=== PATIENT | male | born 1995 | race Caucasian/White ===

== ENCOUNTER 2017-04-15 15:25 | Emergency (ER) | payer OTHER ==
[~2017-04-15] VITALS: Ht 182.9 cm; Wt 88.5 kg
[~2017-04-15 15:25] MED LIST: ACHD5005 PO; CEPH500C PO
--- NOTE | 2017-04-15 17:42 | ED Back Pain ---
General Stated Complaint: LIFTING AND HURT BACK Source of Information: Patient Exam Limitations: No Limitations History of Present Illness Time Seen by Provider: 17:40 Initial Comments To ER with midline low back pain that began just prior to arrival to ER. He was lifting weights bench pressing 275 pounds. He states "I knew it was poor form and part way up I felt it just tighten up ". Pain does not radiate down either leg. No loss of bowel or bladder control. No loss of sensation of his genitals. No history of back problems. Location: Lumbar Spine Timing/Duration: 1-3 Hours Severity: Moderate Pain/Injury Location: Back Associated Symptoms: denies symptoms Allergies and Home Medications Allergies Coded Allergies: No Known Drug Allergies (Verified Allergy, Unknown, 12/16/09) Home Medications Cephalexin Monohydrate 500 Mg Capsule, 1 EACH PO QID, #40 FOR INFECTION Prescribed by: SOHA BENITO on 06/26/132053 Cyclobenzaprine HCl 5 Mg Tablet, 5 MG PO TID PRN for PAIN-MODERATE, #21 Prescribed by: FRANCISCO NEWBY on 04/15/17 1800 Hydrocodone Bit/Acetaminophen 1 Tab Tablet, 1-2 TAB PO Q6H, #20 FOR PAIN Prescribed by: SOHA BENITO on 06/26/132053 Naproxen 500 Mg Tablet, 500 MG PO BID PRN for PAIN-MODERATE TO SEVERE, #30 Prescribed by: FRANCISCO NEWBY on 04/15/17 1800 Constitutional: see HPI EENTM: see HPI Respiratory: no symptoms reported Cardiovascular: no symptoms reported Genitourinary: no symptoms reported Musculoskeletal: see HPI, back pain Skin: no symptoms reported Psychiatric/Neurological: No Symptoms Reported Past Yfftzrq-Ubkowd-Lqoqxh Hx Patient Social History Recent Foreign Travel: No Contact w/Someone Who Travel: No Immunizations Up To Date Tetanus Booster (TDap): Less than 5yrs Surgeries HX Surgeries: No Respiratory Hx Respiratory Disorders: No Cardiovascular Hx Cardiac Disorders: Yes (PVC'S WHEN HE WAS 6-7 YEARS OLD) Neurological Hx Neurological Disorders: Yes (CONCUSSION) Genitourinary Hx Genitourinary Disorders: No Gastrointestinal Hx Gastrointestinal Disorders: No Musculoskeletal Hx Musculoskeletal Disorders: No Endocrine Hx Endocrine Disorders: No HEENT HX ENT Disorders: No Cancer Hx Cancer: No Psychosocial Hx Psychiatric Problems: No Integumentary HX Skin/Integumentary Disorder: No Blood Transfusions Hx Blood Disorders: No Physical Exam Vital Signs Vital Sign - Last 12Hours 04/15/17 17:40 Temp 97.6 Pulse 59 Resp 18 B/P (MAP) 128/71 Pulse Ox 100 O2 Delivery Room Air Capillary Refill : General Appearance: No Apparent Distress, WD/WN HEENT: PERRL/EOMI, TMs Normal Neck: Full Range of Motion, Normal Inspection Cardiovascular: Regular Rate, Rhythm, Normal Peripheral Pulses Respiratory: No Accessory Muscle Use, No Respiratory Distress Gastrointestinal: Non Tender, Soft Extremity: Normal Capillary Refill, Normal Inspection Neurologic/Psychiatric: Alert, Oriented x3, No Motor/Sensory Deficits Skin: Normal Color, Warm/Dry Progress/Results/Core Measures Results/Orders My Orders Orders - FRANCISCO NEWBY APRN Morphine Injection (Morphine Injection (04/15/17 17:45) Ketorolac Injection (Toradol Injection) (04/15/17 17:45) Medications Given in ED Current Medications Medications Dose Ordered Sig/Regino Route Start Time Stop Time Status Last Admin Dose Admin Ketorolac Tromethamine 60 mg ONCE ONCE IM 04/15/17 17:45 04/15/17 17:46 DC 04/15/17 17:46 60 MG Morphine Sulfate 8 mg ONCE ONCE IM 04/15/17 17:45 04/15/17 17:46 DC 04/15/17 17:47 8 MG Vital Signs/I&O Vital Sign - Last 12Hours 04/15/17 17:40 Temp 97.6 Pulse 59 Resp 18 B/P (MAP) 128/71 Pulse Ox 100 O2 Delivery Room Air Departure Impression Impression: Primary Impression: Back strain Disposition: 01 HOME, SELF-CARE Condition: Stable Departure-Patient Inst. Decision time for Depature: 17:59 Referrals: JT ODONNELL DO (PCP/Family) Primary Care Physician Patient Instructions: Low Back Pain (DC) Add. Discharge Instructions: 1. Return to ER for any concerns 2. Follow-up with your doctor later this week 3. Scripts Cyclobenzaprine HCl (Cyclobenzaprine HCl) 5 Mg Tablet 5 MG PO TID Y for PAIN-MODERATE, #21 TAB Prov: FRANCISCO NEWBY APRN 04/15/17 Naproxen (Naprosyn) 500 Mg Tablet 500 MG PO BID Y for PAIN-MODERATE TO SEVERE, #30 TAB Prov: FRANCISCO NEWBY APRN 04/15/17 FRANCISCO NEWBY UNIX ENGINEER April 15, 2017 17:42
[2017-04-15] MEDS ORDERED: morphine INJ 10 MG/ML 1ML (SYR OR VIAL) IM ONE (17:45)
[2017-04-15] MEDS ORDERED: KETOROLAC 60 MG/2 ML VIAL IM ONE (17:45)
[2017-04-15] MEDS ORDERED: NAPR500T PO (18:00)
[2017-04-15] MEDS ORDERED: CYCL5TAB PO (18:00)
[2017-04-15 18:34] VITALS: BP 124/69
== END 2017-04-15 18:34 | disposition home or self-care (01) ==
LOC: EDUNIT# 15:25 → ER 15:28
DX: S39.012A Strain of muscle, fascia and tendon of lower back, initial encounter (principal); X50.9XXA Other and unspecified overexertion or strenuous movements or postures, initial encounter; Y93.B3 Activity, free weights; Y99.8 Other external cause status
CPT/HCPCS: 96372; 99281

== ENCOUNTER → 2017-06-12 | Outpatient (CLI) | payer OTHER ==
[~2017-06-12] MED LIST changes: +CYCL5TAB PO; +NAPR500T PO
== END ==
LOC: LABNPT 15:00
PROVIDERS: ATTEND Nurse Practitioner Family
DX: J02.9 Acute pharyngitis, unspecified (principal)
CPT/HCPCS: 86308

== ENCOUNTER 2018-08-09 17:09 | Emergency (ER) | payer OTHER ==
[~2018-08-09] VITALS: Ht 182.9 cm; Wt 87.1 kg
[~2018-08-09 17:09] MED LIST changes: +NAPR-1071 PO; -NAPR500T PO
--- OUTSIDE RECORDS SUMMARY | 2018-08-09 17:14 | XMS REPORT | Continuity of Care Document ---
Author Author [facility] Organization [facility] Address Unknown Phone Unavailable Allergies Active Description Code Type Severity Reaction Onset Reported/Identified Relationship to Patient Clinical Status Yes No Known Drug Allergies [id number] Drug Allergy Unknown N/A 12/16/2009 Medications There is no data. Problems Date Dx Coded Attending Type Code Diagnosis Diagnosed By 12/16/2009 Ot 850.0 12/16/2009 Ot E000.8 12/16/2009 Ot E029.9 12/16/2009 Ot E849.4 12/16/2009 Ot E886.0 12/16/2009 Ot E888.1 06/12/2011 Ot 692.6 DERMATITIS DUE TO PLANT 06/12/2011 Ot 782.1 NONSPECIF SKIN ERUPT NEC 08/16/2011 Ot 850.0 CONCUSSION W/ O COMA 08/16/2011 Ot 959.01 HEAD INJURY , NOS 08/16/2011 Ot E000.8 OTHER EXTERNAL CAUSE STATUS 08/16/2011 Ot E007.0 ACTIVITIES INVOLVING DJIBOUTIAN TACKLE NILE 08/16/2011 Ot E849.4 ACCID IN RECREATION AREA 08/16/2011 Ot E928.9 ACCIDENT NOS 06/26/2013 SOHA BENITO DO Ot 834.12 DISL INTERPHALN HAND-OPN 06/26/2013 SOHA BENITO DO Ot 959.5 FINGER INJURY NOS 06/26/2013 SOHA BENITO DO Ot E000.8 OTHER EXTERNAL CAUSE STATUS 06/26/2013 SOHA BENITO DO Ot E007.0 ACTIVITIES INVOLVING DJIBOUTIAN TACKLE NILE 06/26/2013 SOHA BENITO DO Ot E849.4 ACCID IN RECREATION AREA 06/26/2013 SOHA BENITO DO Ot E917.0 STRUCK IN SPORTS 03/25/2014 MELODY MENA MD Ot 850.0 CONCUSSION W/O COMA 03/25/2014 MELODY MENA MD Ot 873.63 TOOTH (BROKEN) (FRACTURED) (DUE TO TRAUM 03/25/2014 TRINA ATKINSON, MELODY Betancourt Ot 959.01 HEAD INJURY, NOS 03/25/2014 MELODY MENA MD Ot E000.8 OTHER EXTERNAL CAUSE STATUS 03/25/2014 MELODY MENA MD Ot E007.6 ACTIVITIES INVOLVING BASKETBALL 03/25/2014 MELODY MENA MD Ot E916 STRUCK BY FALLING OBJECT 04/07/2015 FRANCISCO NEWBY APRN Ot 719.41 JOINT PAIN-SHLDER 04/07/2015 FRANCISCO NEWBY APRN Ot 840.8 SPRAIN SHOULDER/ARM NEC 04/07/2015 FRANCISCO NEWBY APRN Ot E000.8 OTHER EXTERNAL CAUSE STATUS 04/07/2015 FRANCISCO NEWBY APRN Ot E010.0 ACTIVITY INVG EXERCISE MACHINES FOR MUSC 04/07/2015 FRANCISCO NEWBY APRN Ot E927.0 OVEREXERTION FROM SUDDEN STRENUOUS MOVEM 06/10/2015 FRANCISCO NEWBY APRN Ot 850.9 06/10/2015 FRANCISCO NEWBY APRN Ot 959.01 06/10/2015 FRANCISCO NEWBY APRN Ot E000.0 06/10/2015 FRANCISCO NEWBY APRN Ot E849.3 06/10/2015 FRACNISCO NEWBY APRN Ot E917.4 04/15/2017 FRANCISCO NEWBY APRN Ot S39.012A STRAIN OF MUSCLE, FASCIA AND TENDON OF L 04/15/2017 FRANCISCO NEWBY APRN Ot S39.92XA UNSPECIFIED INJURY OF LOWER BACK, INITIA 04/15/2017 FRANCISCO NEWBY APRN Ot X50.9XXA OTHER AND UNSPECIFIED OVREXRTN OR STRNOU 04/15/2017 FRANCISCO NEWBY APRN Ot Y93.B3 ACTIVITY, FREE WEIGHTS 04/15/2017 FRANCISCO NEWBY APRN Ot Y99.8 OTHER EXTERNAL CAUSE STATUS 04/18/2017 FRANCISCO NEWBY APRN Ot S39.012A STRAIN OF MUSCLE, FASCIA AND TENDON OF L 04/18/2017 FRANCISCO NEWBY APRN Ot S39.92XA UNSPECIFIED INJURY OF LOWER BACK, INITIA 04/18/2017 FRANCISCO NEWBY APRN Ot X50.9XXA OTHER AND UNSPECIFIED OVREXRTN OR STRNOU 04/18/2017 FRANCISCO NEWBY APRN Ot Y93.B3 ACTIVITY, FREE WEIGHTS 04/18/2017 FRANCISCO NEWBY APRN Ot Y99.8 OTHER EXTERNAL CAUSE STATUS 06/15/2017 JANKI SUAREZ Ot J02.9 ACUTE PHARYNGITIS, UNSPECIFIED 06/18/2017 JANKI SUAREZ Ot J02.9 ACUTE PHARYNGITIS, UNSPECIFIED 11/24/2017 JANKI SUAREZ Ot J02.9 ACUTE PHARYNGITIS, UNSPECIFIED 08/09/2018 JANKI SUAREZ Ot J02.9 ACUTE PHARYNGITIS, UNSPECIFIED Procedures There is no data. Results Test Result Range Serum heterophile antibody titer - 06/12/17 15:00 Serum heterophile antibody titer NEGATIVE NEGATIVE Encounters ACCT No. Visit Date/Time Discharge Status Pt. Type Provider Facility Loc./Unit Complaint [id number] 06/12/2017 15:00:00 06/12/2017 23:59:59 CLS Outpatient JANKI SUAREZ [facility] LAB MONO [id number] 04/15/2017 15:28:00 04/15/2017 18:34:00 DIS Emergency FRANCISCO NEWBY APRN [facility] ER LIFTING AND HURT BACK [id number] 06/10/2015 21:03:00 06/10/2015 23:30:00 DIS Emergency FRANCISCO NEWBY APRN [facility] ER [id number] 04/07/2015 19:18:00 04/07/2015 20:33:00 DIS Emergency FRANCISCO NEWBY APRN [facility] ER HURT ARM WHILE LIFTING WEIGHTS [id number] 03/25/2014 19:44:00 03/25/2014 21:07:00 DIS Emergency MELODY MENA MD [facility] ER HEAD INJ [id number] 06/26/2013 19:02:00 06/26/2013 21:04:00 DIS Emergency SOHA BENITO DO [facility] ER [id number] 08/09/2018 17:10:00 ACT Emergency SANDRA DEL VALLE MD [facility] ER POSS CONCUSSION [id number] 04/07/2015 19:20:00 Document Registration [id number] 08/16/2011 11:14:00 Document Registration [id number] 12/15/2009 22:50:00 Document Registration [email or web address] 06/10/2015 21:04:09 ACT Document Registration
--- NOTE | 2018-08-09 18:11 | ED Head Injury ---
General Chief Complaint: Head/Cervical Problems Stated Complaint: POSS CONCUSSION Nursing Triage Note: AMBULATED TO TRIAGE WITHOUT DIFFICULTY. STATES HE WAS PLAYING FOOTBALL AND WAS HIT IN THE SIDE OF THE FACE AND HEAD AT ABOUT 1700. DOES NOT BELIEVE HE WAS KNOCKED OUT BUT SAW STARS. COMPLAINS OF HEADACHE ET NAUSEA ALONG WITH RIGHT SIDED JAW PAIN. PT COMPLAINS OF NECK PAIN BUT REFUSES A C-COLLAR AT THIS TIME. 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 Allergies and Home Medications Allergies Coded Allergies: No Known Drug Allergies (Verified , 12/16/09) Home Medications Hydrocodone Bit/Acetaminophen 1 Tab Tab, 1 EACH PO Q4H PRN for PAIN-MODERATE Prescribed by: SOHA BENITO on 08/09/181914 Patient Home Medication List Home Medication List Reviewed: Yes Review of Systems Review of Systems Constitutional: dizziness Eyes: See HPI; Denies Blurred Vision Ears, Nose, Mouth, Throat: see HPI Respiratory: no symptoms reported Cardiovascular: no symptoms reported Gastrointestinal: see HPI, nausea; No vomiting Genitourinary: no symptoms reported Musculoskeletal: see HPI, neck pain Skin: no symptoms reported Psychiatric/Neurological: See HPI, Headache Endocrine: No Symptoms Reported Hematologic/Lymphatic: No Symptoms Reported Past Fmbwicr-Sycbue-Dprhzp Hx Patient Social History Alcohol Use: Occasionally Uses Recreational Drug Use: No Smoking Status: Never a Smoker Recent Foreign Travel: No Contact w/Someone Who Travel: No Recent Infectious Disease Expo: No Recent Hopitalizations: Yes Immunizations Up To Date Tetanus Booster (TDap): Less than 5yrs Past Medical History Surgeries: Yes (FOOT; SURGERY ON FACE TO REPAIR DOG BITE) Respiratory: No Cardiac: Yes (PVC'S WHEN HE WAS 6-7 YEARS OLD) Neurological: Yes (CONCUSSION) Concussion Genitourinary: No Gastrointestinal: No Musculoskeletal: No Endocrine: No HEENT: No Cancer: No Psychosocial: No Integumentary: No Blood Disorders: No Physical Exam Vital Signs Vital Signs - First Documented 08/09/18 17:20 Temp 98.0 Pulse 79 Resp 16 B/P (MAP) 149/76 (100) Pulse Ox 98 O2 Delivery Room Air Capillary Refill : Less Than 3 Seconds Height, Weight, BMI Height: 6'11" Weight: 192lbs. oz. 87.501588mh; BMI Method:Stated General Appearance: WD/WN HEENT: PERRL/EOMI, TMs normal, pharynx normal, other (TENDERNESS TO RIGHT MANDIBLE. NO CREPITANCE, UNABLE TO FULLY OPEN MOUTH DUE TO PAIN . MILD SWELLING TO RIGHT MANDIBLE) Neck: limited range of motion, tender lateral, tender midline Cardiovascular: normal peripheral pulses, regular rate, rhythm, no edema, no JVD, no murmur Respiratory: normal breath sounds, no respiratory distress, no accessory muscle use Gastrointestinal: normal bowel sounds, non tender, soft, no organomegaly Back: normal inspection Extremities: normal range of motion, non-tender, normal inspection, no pedal edema, no calf tenderness, normal capillary refill Psychiatric: alert, oriented x 3 (BUT SLIGHTLY SLOWED MENTATION, AND PROBLEMS WITH SHORT TERM MEMORY IN ER--DIFFICULTY RECALLING THINGS THAT HAVE JUST BEEN SAID) Crainal Nerves: normal hearing, normal speech, PERRL Coordination/Gait: normal finger to nose, normal gait Motor/Sensory: no motor deficit, no sensory deficit, no pronator drift Skin: normal color, warm/dry, other (NO EXTERNAL EVIDENCE OF TRAUMA) Progress/Results/Core Measures Results/Orders My Orders Orders - SOHA BENITO DO Ct Head/Face/Cervical Wo (08/09/18 18:05) Hydrocodone/Apap 5/325 Tablet (Lortab 5 (08/09/18 19:15) Vital Signs/I&O Blood Pressure Mean: [address] HEAD/MAXILLOFACIALS/CERVICAL SPINE--FX OF RAMUS OF RIGHT MANDIBLE, EXTENDING TO CORONOID PROCESS, NO ACUTE INJURY OFINTRACRANIAL OR CERVICAL SPINE--PER RADIOLOGIST REPORT @ 1902 Reviewed: Reviewed by Me Departure Impression Primary Impression: Fracture of right side of mandible Additional Impressions: Concussion without loss of consciousness CERVICAL SPINE STRAIN Disposition: 01 HOME, SELF-CARE Condition: Stable (ERASED) Departure-Patient Inst. Referrals: SAMI ARIAS DDS, ADAM S DO (PCP/Family) Primary Care Physician Patient Instructions: Concussion, Adult (DC), Jaw Fracture (DC), Neck Sprain ( DC) Add. Discharge Instructions: ICE TO SORE AREA AT 20 MINUTE INTERVALS NO CHEWING OR OPENING OF MOUTH--LIQUIDS ONLY FOLLOW UP WITH DR. ARIAS THIS WEEK FOR JAW FRACTURE--CALL IN AM FOR APPOINTMENT FOLLOW UP WITH DR. ODONNELL THIS WEEK FOR CONCUSSION--CALL IN AM FOR APPOINTMENT. All discharge instructions reviewed with patient and/or family. Voiced understanding. Scripts Hydrocodone Bit/Acetaminophen (Hydrocodone/Acetaminophen 5/325mg Tablet) 1 Tab Tab 1 EACH PO Q4H PRN for PAIN-MODERATE MDD 10, #20 TAB Prov: SOHA BENITO DO 08/09/18 SOHA BENITO DO Aug 09, 2018 18:11
--- NOTE | 2018-08-09 18:47 | Diagnostic Imaging Report ---
PROCEDURE: CT head, face, and cervical spine without contrast. TECHNIQUE: Multiple contiguous axial images were obtained through the head, neck, and facial bones without the use of intravenous contrast. Sagittal and coronal reformations through the cervical spine and facial bones were also performed. DATE: August 09, 2018. COMPARISON: CT head June 10, 2015. CT head and maxillofacial area March 25, 2014. INDICATION: 23-year-old male, injury playing football. Dizziness and headache. Direct trauma to jaw. Neck pain. FINDINGS: The frontal sinuses are hypoplastic. The visualized portions of the paranasal sinuses are well aerated. Mastoid air cells and middle ears are well aerated. The ventricles and cerebral spinal fluid spaces are of normal size and configuration for the patient's age. There is no mass effect or midline shift. There is no acute intracranial hemorrhage. There is no abnormal extra-axial fluid collection. The temporomandibular joints are normally aligned. There is a nondisplaced obliquely oriented fracture of the right mandibular ramus seen best on coronal image 62. This also extends towards the coronoid process of the mandible on sagittal image 67. There is no identified nasal bone fracture. The bony nasal septum is near midline. There is no air-fluid level or other opacification within the paranasal sinuses. There is no identified acute maxillofacial bone fracture. There is no identified facet joint subluxation or dislocation. There is no asymmetric widening of the cervical disc spaces. There is no pronounced prevertebral soft tissue swelling. There is no acute fracture of the cervical spine. The cervical disc heights are well preserved. CT is limited for assessment of disc pathology as well as additional non-bony causes of foraminal and spinal stenosis. There are subcentimeter low-attenuation thyroid nodules bilaterally. The orbits are unremarkable in appearance. IMPRESSION: 1. Nondisplaced fracture involving the right mandibular ramus extending to the coronoid process. 2. No additional identified maxillofacial bone fracture. 3. No acute intracranial abnormality. 4. No acute abnormality of the cervical spine. Dictated by: Dictated on workstation # [id number]
[2018-08-09] MEDS ORDERED: HYDROcodone/APAP 5 MG/325 MG (LORTAB) TAB PO ONE (19:15)
[2018-08-09] MEDS ORDERED: ACHD5005 PO (19:15)
[2018-08-09 19:25] VITALS: BP 130/63
== END 2018-08-09 19:29 | disposition home or self-care (01) ==
LOC: EDUNIT# 17:09 → ER 17:10
DX: S02.641A Fracture of ramus of right mandible, initial encounter for closed fracture (principal); S06.0X0A Concussion without loss of consciousness, initial encounter; S16.1XXA Strain of muscle, fascia and tendon at neck level, initial encounter; Z92.82 Status post administration of tPA (rtPA) in a different facility within the last 24 hours prior to admission to current facility; W03.XXXA Other fall on same level due to collision with another person, initial encounter; Y93.61 Activity, american tackle football; Y92.213 High school as the place of occurrence of the external cause
CPT/HCPCS: 70450; 70486; 72125

== ENCOUNTER 2018-12-07 20:21 | Emergency (ER) | payer OTHER ==
[~2018-12-07] VITALS: Ht 182.9 cm; Wt 88.5 kg
--- OUTSIDE RECORDS SUMMARY | 2018-12-07 20:26 | XMS REPORT | Continuity of Care Document ---
Author Author [facility] Organization [facility] Address Unknown Phone Unavailable Allergies Active Description Code Type Severity Reaction Onset Reported/Identified Relationship to Patient Clinical Status Yes No Known Drug Allergies [id number] Drug Allergy Unknown N/A 12/16/2009 Medications There [...] CAUSE STATUS 08/16/2011 Ot E007.0 ACTIVITIES INVOLVING SLOVENIAN TACKLE NILE 08/16/2011 Ot E849.4 ACCID IN RECREATION AREA 08/16/2011 Ot E928.9 ACCIDENT NOS 06/26/2013 SOHA BENITO DO Ot 834.12 DISL INTERPHALN HAND-OPN 06/26/2013 SOHA BENITO DO Ot 959.5 FINGER INJURY NOS 06/26/2013 SOHA BENITO DO Ot E000.8 OTHER EXTERNAL CAUSE STATUS 06/26/2013 SOHA BENITO DO Ot E007.0 ACTIVITIES INVOLVING SLOVENIAN TACKLE NILE 06/26/2013 SOHA BENITO DO Ot [...] 06/10/2015 FRANCISCO NEWBY APRN Ot E849.3 06/10/2015 FRANCISCO NEWBY APRN Ot E917.4 04/15/2017 FRANCISCO NEWBY [...] SUAREZ Ot J02.9 ACUTE PHARYNGITIS, UNSPECIFIED 08/09/2018 THONG GORDON SOHA Beatty Ot R51 HEADACHE 08/09/2018 THONG SOHA GORDON Ot S02.641A FRACTURE OF RAMUS OF RIGHT MANDIBLE, INI 08/09/2018 THONG SOHA GORDON Ot S06.0X0A CONCUSSION WITHOUT LOSS OF CONSCIOUSNESS 08/09/2018 THONG SOHA Beatty Ot S16.1XXA STRAIN OF MUSCLE, FASCIA AND TENDON AT N 08/09/2018 THONG SOHA Beatty Ot W03.XXXA OTH FALL SAME LEV DUE TO COLLISION W ANO 08/09/2018 THONG SOHA Beatty Ot Y92.[address] OF OCCURRENCE O 08/09/2018 THONG GORDON SOHA Beatty Ot Y93.61 ACTIVITY, SLOVENIAN TACKLE FOOTBALL 08/09/2018 THONG GORDON SOHA Rogerio Ot Z92.82 S/P ADMN TPA IN DIFF FAC W/N LAST 24 HR 08/11/2018 THONG GORDON SOHA Beatty Ot R51 HEADACHE 08/11/2018 COINJOCK SOHA GORDON Ot S02.641A FRACTURE OF RAMUS OF RIGHT MANDIBLE, INI 08/11/2018 SOHA BENITO DO Ot S06.0X0A CONCUSSION WITHOUT LOSS OF CONSCIOUSNESS 08/11/2018 COINJOCK SOHA GORDON Ot S16.1XXA STRAIN OF MUSCLE, FASCIA AND TENDON AT N 08/11/2018 THONG SOHA GORDON Ot W03.XXXA OTH FALL SAME LEV DUE TO COLLISION W ANO 08/11/2018 THONG SOHA Beatty Ot Y92.[address] OF OCCURRENCE O 08/11/2018 SOHA BENITO DO Ot Y93.61 ACTIVITY, SLOVENIAN TACKLE FOOTBALL 08/11/2018 SOHA BENITO DO Ot Z92.82 S/P ADMN TPA IN DIFF FAC W/N LAST 24 HR Procedures There is no data. Results Test Result Range Serum heterophile antibody titer - 06/12/17 15:00 Serum heterophile antibody titer NEGATIVE NEGATIVE Encounters ACCT No. Visit Date/Time Discharge Status Pt. Type Provider Facility Loc./Unit Complaint [id number] 08/09/2018 17:10:00 08/09/2018 19:29:00 DIS Emergency SOHA BENITO DO [facility] ER POSS CONCUSSION [id number] 06/12/2017 15:00:00 06/12/2017 23:59:59 CLS Outpatient JANKI SUAREZ [facility] LAB MONO [id number] 04/15/2017 15:28:00 04/15/2017 18:34:00 DIS Emergency FRANCISCO NEWBY APRN [facility] ER LIFTING AND HURT BACK [id number] 06/10/2015 21:03:00 06/10/2015 23:30:00 DIS Emergency FRANCISCO NEWBY APRN [facility] ER [id number] 04/07/2015 19:18:00 04/07/2015 20:33:00 DIS Emergency FRANCISCO NEWBY APRN [facility] ER HURT ARM WHILE LIFTING WEIGHTS [id number] 03/25/2014 19:44:00 03/25/2014 21:07:00 DIS Emergency MELODY MENA MD [facility] ER HEAD INJ [id number] 06/26/2013 19:02:00 06/26/2013 21:04:00 DIS Emergency SOHA BENITO DO [facility] ER FINGER INJ [id number] 04/07/2015 19:20:00 Document Registration [id number] 08/16/2011 11:14:00 Document Registration [id number] 12/15/2009 22:50:00 Document Registration [email or web address] 06/10/2015 21:04:09 ACT Document Registration
[2018-12-07 20:55] LABS: BASOPHILS % (AUTO) 1 % (0-10); EOSINOPHILS # (AUTO) 0.2 10^3/uL (0.0-0.3); EOSINOPHILS % (AUTO) 2 % (0-10); HEMATOCRIT 44 % (40-54); HEMOGLOBIN 16.2 G/DL (13.3-17.7); LYMPHOCYTES # (AUTO) 1.8 X 10^3 (1.0-4.0); LYMPHOCYTES % (AUTO) 22 % (12-44); MEAN CORPUSCULAR HEMOGLOBIN 31 PG (25-34); MEAN CORPUSCULAR HGB CONC 37 G/DL (32-36); MEAN CORPUSCULAR VOLUME 85 FL (80-99); MEAN PLATELET VOLUME 9.8 FL (7.4-10.4); MONOCYTES # (AUTO) 0.7 X 10^3 (0.0-1.0); MONOCYTES % (AUTO) 9 % (0-12); NEUTROPHILS # (AUTO) 5.4 X 10^3 (1.8-7.8); NEUTROPHILS % (AUTO) 67 % (42-75); PLATELET COUNT 204 10^3/uL (130-400); RED BLOOD COUNT 5.22 10^6/uL (4.35-5.85); RED CELL DISTRIBUTION WIDTH 12.7 % (10.0-14.5); WHITE BLOOD COUNT 8.1 10^3/uL (4.3-11.0)
[2018-12-07 21:11] LABS: ALANINE AMINOTRANSFERASE 14 U/L (0-55); ALBUMIN 4.6 GM/DL (3.2-4.5); ALKALINE PHOSPHATASE 58 U/L (40-136); BILIRUBIN,TOTAL 0.5 MG/DL (0.1-1.0); BUN/CREATININE RATIO 15; CALCIUM 9.3 MG/DL (8.5-10.1); CARBON DIOXIDE 24 MMOL/L (21-32); CHLORIDE 105 MMOL/L (98-107); CREATININE SERUM 1.25 MG/DL (0.60-1.30); GFR ESTIMATED > 60; GLUCOSE 121 MG/DL (70-105); POTASSIUM 3.9 MMOL/L (3.6-5.0); SODIUM 140 MMOL/L (135-145); TOTAL PROTEIN 7.4 GM/DL (6.4-8.2)
--- NOTE | 2018-12-07 21:13 | ED Lower Extremity ---
General Chief Complaint: Lower Extremity Stated Complaint: L FOOT SWELLING/PAIN Nursing Triage Note: PT REPORTS HAVING LEFT FOOT PAIN WITH CALF TIGHTNESS. PT STATES HE WORKS OUT AND LIFTS FREQUENTLY. PT STATES HE WOKE UP AND HAD THE PAIN. Nursing Sepsis Screen: No Definite Risk Source: patient Exam Limitations: no limitations History of Present Illness Date Seen by Provider: Dec 07, 2018 Time Seen by Provider: 20:43 Initial Comments Patient is a 23-year-old male who presents to emergency room with complaints of left foot and ankle pain/tightness when he ambulates. Patient reports that he works out almost every day but cannot recall an injury reports he woke up today and had the ankle pain. Allergies and Home Medications Allergies Coded Allergies: No Known Drug Allergies (Verified , 12/16/09) Home Medications Hydrocodone Bit/Acetaminophen 1 Tab Tab, 1 EACH PO Q4H PRN for PAIN-MODERATE Prescribed by: SOHA BENITO on 08/09/181914 Past Cbvldej-Nwtsif-Ctcdxq Hx Patient Social History Alcohol Use: Rarely Uses Alcohol Beverage of Choice: Beer Recreational Drug Use: No Smoking Status: Never a Smoker Recent Foreign Travel: No Contact w/Someone Who Travel: No Recent Infectious Disease Expo: No Recent Hopitalizations: Yes Physical Abuse: No Sexual Abuse: No Immunizations Up To Date Tetanus Booster (TDap): Less than 5yrs Past Medical History Surgeries: Yes (FOOT; SURGERY ON FACE TO REPAIR DOG BITE) Respiratory: No Cardiac: Yes (PVC'S WHEN HE WAS 6-7 YEARS OLD) Neurological: Yes (CONCUSSION) Concussion Genitourinary: No Gastrointestinal: No Musculoskeletal: No Endocrine: No HEENT: No Cancer: No Psychosocial: No Integumentary: No Blood Disorders: No Physical Exam Vital Signs Vital Signs - First Documented 12/07/18 20:30 Temp 97.1 Pulse 51 Resp 12 B/P (MAP) 120/62 (81) Pulse Ox 100 Capillary Refill : Less Than 3 Seconds Height, Weight, BMI Height: 6'0" Weight: 195lbs. oz. 88.002247or; BMI Method:Stated Progress/Results/Core Measures Results/Orders Lab Results Laboratory Tests Test 12/07/18 20:46 Range/Units White Blood Count 8.1 4.3-11.0 10^3/uL Red Blood Count 5.22 4.35-5.85 10^6/uL Hemoglobin 16.2 13.3-17.7 G/DL Hematocrit 44 40-54 % Mean Corpuscular Volume 85 80-99 FL Mean Corpuscular Hemoglobin 31 25-34 PG Mean Corpuscular Hemoglobin Concent 37 H 32-36 G/DL Red Cell Distribution Width 12.7 10.0-14.5 % Platelet Count 204 130-400 10^3/uL Mean Platelet Volume 9.8 7.4-10.4 FL Neutrophils (%) (Auto) 67 42-75 % Lymphocytes (%) (Auto) 22 12-44 % Monocytes (%) (Auto) 9 0-12 % Eosinophils (%) (Auto) 2 0-10 % Basophils (%) (Auto) 1 0-10 % Neutrophils # (Auto) 5.4 1.8-7.8 X 10^3 Lymphocytes # (Auto) 1.8 1.0-4.0 X 10^3 Monocytes # (Auto) 0.7 0.0-1.0 X 10^3 Eosinophils # (Auto) 0.2 0.0-0.3 10^3/uL Basophils # (Auto) 0.0 0.0-0.1 10^3/uL Prothrombin Time 14.2 12.2-14.7 SEC INR Comment 1.1 0.8-1.4 Activated Partial Thromboplast Time 32 24-35 SEC D-Dimer 0.27 0.00-0.49 UG/ML Sodium Level 140 135-145 MMOL/L Potassium Level 3.9 3.6-5.0 MMOL/L Chloride Level 105 98-107 MMOL/L Carbon Dioxide Level 24 21-32 MMOL/L Anion Gap 11 5-14 MMOL/L Blood Urea Nitrogen 19 H 7-18 MG/DL Creatinine 1.25 0.60-1.30 MG/DL Estimat Glomerular Filtration Rate > 60 BUN/Creatinine Ratio 15 Glucose Level 121 H 70-105 MG/DL Calcium Level 9.3 8.5-10.1 MG/DL Corrected Calcium 8.5-10.1 MG/DL Total Bilirubin 0.5 0.1-1.0 MG/DL Aspartate Amino Transf (AST/SGOT) 17 5-34 U/L Alanine Aminotransferase (ALT/SGPT) 14 0-55 U/L Alkaline Phosphatase 58 40-136 U/L Total Protein 7.4 6.4-8.2 GM/DL Albumin 4.6 H 3.2-4.5 GM/DL My Orders Orders - YA ROY Comprehensive Metabolic Panel (12/07/18 20:42) Cbc With Automated Diff (12/07/18 20:42) Protime With Inr (12/07/18 20:42) Partial Thromboplastin Time (12/07/18 20:42) Fibrin Degradation Products (12/07/18 20:42) Vital Signs/I&O 12/07/18 20:30 Temp 97.1 Pulse 51 Resp 12 B/P (MAP) 120/62 (81) Pulse Ox 100 Blood Pressure Mean: 81 Departure Impression Primary Impression: Ankle swelling Disposition: HOME, SELF-CARE Condition: Stable/Unchanged Departure-Patient Inst. Decision time for Depature: 21:52 Referrals: JT ODONNELL DO (PCP/Family) Primary Care Physician Patient Instructions: Swelling Add. Discharge Instructions: Elevated the ankle as much as possible. Ice to sore areas. Ibuprofen and Tylenol as directed by the bottle for pain relief. Return back to the emergency room for any worsening symptoms or concerns as needed. Follow-up with your regular doctor within 1 week for recheck. All discharge instructions reviewed with patient and/or family. Voiced understanding. YA ROY Dec 07, 2018 21:12
[2018-12-07 21:40] LABS: FIBRIN DEGRADATION PRODUCTS 0.27 UG/ML (0.00-0.49); INR 1.1 (0.8-1.4); PROTHROMBIN TIME PATIENT 14.2 SEC (12.2-14.7)
[2018-12-07 21:57] VITALS: BP 120/62
== END 2018-12-07 21:57 | disposition home or self-care (01) ==
LOC: EDUNIT# 20:21 → ER 20:22
DX: M25.472 Effusion, left ankle (principal); Z98.890 Other specified postprocedural states
CPT/HCPCS: 36415; 80053; 85025; 85379; 85610; 85730

== ENCOUNTER 2019-10-09 10:39 | Emergency (ER) | payer OTHER ==
[~2019-10-09] VITALS: Ht 182.8 cm; Wt 84.8 kg
[2019-10-09] MEDS ORDERED: ORPHENADRINE 60 MG/2 ML (NORFLEX) AMP IM ONE (11:15)
[2019-10-09] MEDS ORDERED: KETOROLAC 60 MG/2 ML VIAL IM ONE (11:15)
[2019-10-09] MEDS ORDERED: HYDROcodone/APAP 5 MG/325 MG (LORTAB) TAB PO ONE (11:15)
--- NOTE | 2019-10-09 11:16 | ED Back Pain ---
General Chief Complaint: Back Problems Stated Complaint: LOWER BACK PAIN Nursing Triage Note: Pt to ED in wheelchair. Pt reports lifting weights yesterday and felt back pop while squatting. Pt reports pain felt like "a thousand rubber bands popping." Pt c/o pain and weakness in R leg. Pt denies bowel or bladder issues. Pt reports taking IBU for pain at 0815. Nursing Sepsis Screen: No Definite Risk Source of Information: Patient Exam Limitations: No Limitations History of Present Illness Date Seen by Provider: Oct 09, 2019 Time Seen by Provider: 11:14 Initial Comments To ER with midline low back pain that began last night while swatting. He was doing circuit training. He states it felt like rubber bands popping. He had pain and weakness in the right leg. Pain goes down to the knee. Denies loss of bowel or bladder control or loss of sensation of genitals. Unable to walk into the emergency room due to the pain. Took ibuprofen at 8 AM this morning without relief. Location: Lumbar Spine, Paraspinous Muscles Timing/Duration: 1-2 Days Severity: Severe Pain/Injury Location: Back Radiation: Upper Legs Method of Injury: Other (lifting) Associated Symptoms: denies symptoms Allergies and Home Medications Allergies Coded Allergies: No Known Drug Allergies (Verified , 12/16/09) Home Medications Hydrocodone Bit/Acetaminophen 1 Tab Tab, 1 EACH PO Q4H PRN for PAIN-MODERATE Prescribed by: SOHA BENITO on 08/09/181914 Hydrocodone/Acetaminophen 1 Each Tablet, 1 TAB PO Q6H Prescribed by: FRANCISCO NEWBY on 10/09/19 1206 Prednisone 20 Mg Tab, 40 MG PO DAILY Prescribed by: FRANCISCO NEWBY on 10/09/19 1206 Patient Home Medication List Home Medication List Reviewed: Yes Review of Systems Constitutional: see HPI; No chills, No fever EENTM: see HPI Respiratory: no symptoms reported Cardiovascular: no symptoms reported Genitourinary: no symptoms reported Musculoskeletal: see HPI, back pain Skin: no symptoms reported Psychiatric/Neurological: No Symptoms Reported Past Xhyyclm-Rzefok-Bfodac Hx Patient Social History Alcohol Use: Denies Use Number of Drinks Today: AA Alcohol Beverage of Choice: Beer Recreational Drug Use: No 2nd Hand Smoke Exposure: No Recent Foreign Travel: No Contact w/Someone Who Travel: No Recent Infectious Disease Expo: No Recent Hopitalizations: Yes Immunizations Up To Date Tetanus Booster (TDap): Less than 5yrs Past Medical History Surgeries: Yes (FOOT; SURGERY ON FACE TO REPAIR DOG BITE) Respiratory: No Cardiac: Yes (PVC'S WHEN HE WAS 6-7 YEARS OLD) Neurological: Yes (CONCUSSION) Concussion Genitourinary: No Gastrointestinal: No Musculoskeletal: No Endocrine: No HEENT: No Cancer: No Psychosocial: No Integumentary: No Blood Disorders: No Physical Exam Vital Signs Vital Signs - First Documented 10/09/19 11:00 Temp 36.6 Pulse 60 Resp 12 B/P (MAP) 119/76 (90) Pulse Ox 98 O2 Delivery Room Air Capillary Refill : Less Than 3 Seconds Height, Weight, BMI Height: 6'0" Weight: 195lbs. oz. 88.233942on; 25.00 BMI Method:Stated General Appearance: No Apparent Distress, WD/WN Neck: Full Range of Motion, Normal Inspection Respiratory: Lungs Clear, Normal Breath Sounds, No Accessory Muscle Use, No Respiratory Distress Gastrointestinal: Normal Bowel Sounds, Non Tender, Soft Neurologic/Psychiatric: Alert, Oriented x3, No Motor/Sensory Deficits Skin: Normal Color, Warm/Dry Progress/Results/Core Measures Results/Orders My Orders Orders - FRANCISCO NEWBY APRN Ketorolac Injection (Toradol Injection) (10/09/19 11:15) Orphenadrine Injection (Norflex Injectio (10/09/19 11:15) Hydrocodone/Apap 5/325 Tablet (Lortab 5 (10/09/19 11:15) Ct Lumbar Spine Wo (10/09/19 11:17) Medications Given in ED Current Medications Medications Dose Ordered Sig/Regino Route Start Time Stop Time Status Last Admin Dose Admin Acetaminophen/ Hydrocodone Bitart 1 tab ONCE ONCE PO 10/09/19 11:15 10/09/19 11:16 DC 10/09/19 11:20 1 TAB Ketorolac Tromethamine 60 mg ONCE ONCE IM 10/09/19 11:15 10/09/19 11:16 DC 10/09/19 11:24 60 MG Orphenadrine Citrate 60 mg ONCE ONCE IM 10/09/19 11:15 10/09/19 11:16 DC 10/09/19 11:23 60 MG Vital Signs/I&O 10/09/19 11:00 Temp 36.6 Pulse 60 Resp 12 B/P (MAP) 119/76 (90) Pulse Ox 98 O2 Delivery Room Air Blood Pressure Mean: 90 POS Departure Communication (Admissions) NAME: ABDIAS ERIC [facility] REC#: [id number] PT STATUS: REG ER : 1995 PHYSICIAN: FRANCISCO NEWBY APRN ADMIT DATE: 10/09/19/ER Signed POSDate of Exam:10/09/19 CT LUMBAR SPINE WO PROCEDURE: CT lumbar spine without contrast. TECHNIQUE: Multiple contiguous axial images were obtained through the lumbar spine without the use of intravenous contrast. Sagittal and coronal reformations were then performed. Auto Exposure Controls were utilized during the CT exam to meet ALARA standards for radiation dose reduction. INDICATION: Right leg pain. COMPARISON: None available. FINDINGS: Normal lordosis of lumbar spine. No fracture. At L5-S1, there is a right paracentral disc protrusion that narrows the right lateral recess and could impinge upon the descending right-sided S1 nerve root. Minimal disc bulge at L2-L3 and L3-L4 do not cause spinal stenosis. Paravertebral musculature is symmetric. No concerning abnormality in the retroperitoneum. IMPRESSION: 1. At L5-S1, there is a large right paracentral disc protrusion narrowing the right lateral recess and likely contacts and potentially impinges the descending right S1 nerve root. Dictated by: Dictated on workstation # [id number] Dict: 10/09/19 1147 Trans: 10/09/19 1207 [facility] [id number] Interpreted by: VANDANA STEVENSON MD Electronically signed by: VANDANA STEVENSON MD 10/09/19 1207 Impression Primary Impression: Bulging disc Disposition: 01 HOME, SELF-CARE Condition: Stable Departure-Patient Inst. Decision time for Depature: 12:00 Referrals: JT ODONNELL DO (PCP/Family) Primary Care Physician Patient Instructions: Radiculopathy Add. Discharge Instructions: 1. Steroids as directed 2. No lifting for 7 days 3. Follow-up with your doctor next week for recheck. Scripts Prednisone (Prednisone) 20 Mg Tab 40 MG PO DAILY, #8 TAB 0 Refills Prov: FRANCISCO NEWBY APRN 10/09/19 Hydrocodone/Acetaminophen ([place] 5-325 Tablet) 1 Each Tablet 1 TAB PO Q6H for Pain MDD 10 TABS for 7 Days, #20 TAB Prov: FRANCISCO NEWBY APRN 10/09/19 Work/School Note: Work Release Form Date Seen in the Emergency Department: Oct 09, 2019 Return to Work: Oct 12, 2019 Other Restrictions Listed Below: No lifting, no bending until 10/16. Squatting is allowed. Copy Copies To 1: JT ODONNELL PETER J APRN Oct 09, 2019 11:15 POS
--- NOTE | 2019-10-09 11:55 | Diagnostic Imaging Report ---
PROCEDURE: CT lumbar spine without contrast. TECHNIQUE: Multiple contiguous axial images were obtained through the lumbar spine without the use of intravenous contrast. Sagittal and coronal reformations were then performed. Auto Exposure Controls were utilized during the CT exam to meet ALARA standards for radiation dose reduction. INDICATION: Right leg pain. COMPARISON: None available. FINDINGS: Normal lordosis of lumbar spine. No fracture. At L5-S1, there is a right paracentral disc protrusion that narrows the right lateral recess and could impinge upon the descending right-sided S1 nerve root. Minimal disc bulge at L2-L3 and L3-L4 do not cause spinal stenosis. Paravertebral musculature is symmetric. No concerning abnormality in the retroperitoneum. IMPRESSION: 1. At L5-S1, there is a large right paracentral disc protrusion narrowing the right lateral recess and likely contacts and potentially impinges the descending right S1 nerve root. Dictated by: Dictated on workstation # [id number]
[2019-10-09] MEDS ORDERED: HYDR-4226 PO (12:06)
[2019-10-09] MEDS ORDERED: PRD20T PO (12:06)
[2019-10-09 12:22] VITALS: BP 119/76
== END 2019-10-09 12:22 | disposition home or self-care (01) ==
LOC: EDUNIT# 10:39 → ER 10:41
DX: M51.26 Other intervertebral disc displacement, lumbar region (principal); Z87.820 Personal history of traumatic brain injury; X50.0XXA Overexertion from strenuous movement or load, initial encounter
CPT/HCPCS: 72131

== ENCOUNTER 2020-06-08 22:15 | Emergency (ER) | payer OTHER ==
[~2020-06-08] VITALS: Ht 183 cm; Wt 84.8 kg
[~2020-06-08 22:15] MED LIST changes: +HYDR-4226 PO; +PRD20T PO
--- OUTSIDE RECORDS SUMMARY | 2020-06-08 22:21 | XMS REPORT | Continuity of Care Document ---
Author Organization Unknown Address Unknown Phone Unavailable Allergies Active Description Code Type Severity Reaction Onset Reported/Identified Relationship to Patient Clinical Status Yes No Known Drug Allergies [id number] Drug Allergy Unknown N/A 12/16/2009 Medications There is no data. Problems Date Dx Coded Attending Type Code Diagnosis Diagnosed By 12/16/2009 Ot 850.0 12/16/2009 Ot E000.8 12/16/2009 Ot E029.9 12/16/2009 Ot E849.4 12/16/2009 Ot E886.0 12/16/2009 Ot E888.1 06/12/2011 Ot 692.6 DERM ATITIS DUE TO PLANT 06/12/2011 Ot 782.1 NONS PECIF SKIN ERUPT NEC 08/16/2011 Ot 850.0 CONC USSION W/O COMA 08/16/2011 Ot 959.01 HEA D INJURY, NOS 08/16/2011 Ot E000.8 OTH ER EXTERNAL CAUSE STATUS 08/16/2011 Ot E007.0 ACT IVITIES INVOLVING BURUNDIAN TACKLE NILE 08/16/2011 Ot E849.4 ACC ID IN RECREATION AREA 08/16/2011 Ot E928.9 ACC IDENT NOS 06/26/2013 SOHA BENITO DO Ot 834.12 DISL INTERPHALN HAND-OPN 06/26/2013 SOHA BENITO DO Ot 959.5 FINGER INJURY NOS 06/26/2013 SOHA BENITO DO Ot E000.8 OTHER EXTERNAL CAUSE STATUS 06/26/2013 SOHA BENITO DO Ot E007.0 ACTIVITIES INVOLVING BURUNDIAN TACKLE NILE 06/26/2013 SOHA BENITO DO Ot E849.4 ACCID IN RECREATION AREA 06/26/2013 SOHA BENITO DO Ot E917.0 STRUCK IN SPORTS 03/25/2014 MELODY MENA MD Ot 850.0 CONCUSSION W/O COMA 03/25/2014 MELODY MENA MD Ot 873.63 TOOTH (BROKEN) (FRACTURED) (DUE TO TRAUM 03/25/2014 MELODY MENA MD Ot 959.01 HEAD INJURY, NOS 03/25/2014 MELODY MENA MD Ot E000.8 OTHER EXTERNAL CAUSE STATUS 03/25/2014 MELODY MENA MD Ot E007.6 ACTIVITIES INVOLVING BASKETBALL 03/25/2014 MELODY MENA MD Ot E916 STRUCK BY FALLING OBJECT 04/07/2015 FRANCISCO NEWBY APRN Ot 719.41 JOINT PAIN-SHLDER 04/07/2015 FRANCISCO NEWBY APRN Ot 840 .8 SPRAIN SHOULDER/ARM NEC 04/07/2015 FRANCISCO NEWBY APRN Ot E000.8 OTHER EXTERNAL CAUSE STATUS 04/07/2015 FRANCISCO NEWBY APRN Ot E010.0 ACTIVITY INVG EXERCISE MACHINES FOR MUSC 04/07/2015 FRANCISCO NEWBY APRN Ot E927.0 OVEREXERTION FROM SUDDEN STRENUOUS MOVEM 06/10/2015 FRANCISCO NEWBY APRN Ot 850 .9 06/10/2015 FRANCISCO NEWBY APRN Ot 959.01 06/10/2015 [...] FREE WEIGHTS 04/15/2017 FRANCISCO NEWBY APRN Ot Y99 .8 OTHER EXTERNAL CAUSE STATUS 04/18/2017 FRANCISCO NEWBY APRN Ot S39.012A STRAIN OF MUSCLE, FASCIA AND TENDON OF L 04/18/2017 FRANCISCO NEWBY APRN Ot S39.92XA UNSPECIFIED INJURY OF LOWER BACK, INITIA 04/18/2017 FRANCISCO NEWBY APRN Ot X50.9XXA OTHER AND UNSPECIFIED OVREXRTN OR STRNOU 04/18/2017 FRANCISCO NEWBY APRN Ot Y93.B3 ACTIVITY, FREE WEIGHTS 04/18/2017 FRANCISCO NEWBY APRN Ot Y99 .8 OTHER EXTERNAL CAUSE STATUS 06/15/2017 JANKI SUAREZ Ot J02.9 ACUTE PHARYNGITIS, UNSPECIFIED 06/18/2017 JANKI SUAREZ Ot J02.9 ACUTE PHARYNGITIS, UNSPECIFIED 11/24/2017 VAN JANKI LINARES Ot J02.9 ACUTE PHARYNGITIS, UNSPECIFIED 08/09/2018 VAN JANKI LINARES Ot J02.9 ACUTE PHARYNGITIS, UNSPECIFIED 08/09/2018 THONG GORDONSOHA Ot R51 HEADACHE 08/09/2018 THONG SOHA Rogerio Ot S02.641 A FRACTURE OF RAMUS OF RIGHT MANDIBLE, INI 08/09/2018 THONG SOHA Beatty Ot S06.0X0 A CONCUSSION WITHOUT LOSS OF CONSCIOUSNESS 08/09/2018 THONG SOHA K Ot S16.1XX A STRAIN OF MUSCLE, FASCIA AND TENDON AT N 08/09/2018 THONG SOHA K Ot W03.XXX A OTH FALL SAME LEV DUE TO COLLISION W ANO 08/09/2018 THONG SOHA Rogerio Ot Y92.[address] OF OCCURRENCE O 08/09/2018 THONG GORDON SOHA Rogerio Ot Y93.61 ACTIVITY, BURUNDIAN TACKLE FOOTBALL 08/09/2018 THONG GORDON SOHA K Ot Z92.82 S/P ADMN TPA IN DIFF FAC W/N LAST 24 HR 08/11/2018 THONG GORDON SOHA K Ot R51 HEADACHE 08/11/2018 [facility] , SOHA Beatty Ot S02.641 A FRACTURE OF RAMUS OF RIGHT MANDIBLE, INI 08/11/2018 THONG SOHA Beatty Ot S06.0X0 A CONCUSSION WITHOUT LOSS OF CONSCIOUSNESS 08/11/2018 FOSTER SOHA Beatty Ot S16.1XX A STRAIN OF MUSCLE, FASCIA AND TENDON AT N 08/11/2018 [facility], SOHA K Ot W03.XXX A OTH FALL SAME LEV DUE TO COLLISION W ANO 08/11/2018 THONG SOHA K Ot Y92.[address] OF OCCURRENCE O 08/11/2018 SOHA BENITO DO Ot Y93.61 ACTIVITY, BURUNDIAN TACKLE FOOTBALL 08/11/2018 SOHA BENITO DO Ot Z92.82 S/P ADMN TPA IN DIFF FAC W/N LAST 24 HR 12/07/2018 YA ROY Ot M25.472 EFFUSION, LEFT ANKLE 12/07/2018 YA ROY Ot M25.572 PAIN IN LEFT ANKLE AND JOINTS OF LEFT FO 12/07/2018 YA ROY Ot Z98.890 OTHER SPECIFIED POSTPROCEDURAL STATES 12/08/2018 W 729.5 PAIN IN LIMB 12/08/2018 W M79.672 PA IN IN LEFT FOOT 12/11/2018 YA ROY Ot M25.472 EFFUSION, LEFT ANKLE 12/11/2018 YA ROY Ot M25.572 PAIN IN LEFT ANKLE AND JOINTS OF LEFT FO 12/11/2018 YA ROY Ot Z98.890 OTHER SPECIFIED POSTPROCEDURAL STATES 10/09/2019 FRANCISCO NEWBY APRN Ot M51.26 OTHER INTERVERTEBRAL DISC DISPLACEMENT, 10/09/2019 FRANCISCO NEWBY APRN Ot M54 .5 LOW BACK PAIN 10/09/2019 FRANCISCO NEWBY APRN Ot X50.0XXA OVEREXERTION FROM STRENUOUS MOVEMENT OR 10/09/2019 FRANCISCO NEWBY APRN Ot Z87.820 PERSONAL HISTORY OF TRAUMATIC BRAIN INJU 10/09/2019 JANKI SUAREZ Ot J02.9 ACUTE PHARYNGITIS, UNSPECIFIED Procedures There is no data. Results Test Result Range Serum heterophile antibody titer - 06/12 15:00 Serum heterophile antibody titer NEGATIVE NEGATIVE Complete blood count (CBC) with automate d white blood cell (WBC) differential - 12/07/18 20:46 Blood leukocytes automated count (number/volume) 8.1 10*3/uL 4.3-11.0 Blood erythrocytes automated count (number/volume) 5.22 10*6/uL 4.35-5.85 Venous blood hemoglobin measurement (mass/volume) 16.2 g/dL 13.3-17.7 Blood hematocrit (volume fraction) 44 % 40-54 Automated erythrocyte mean corpuscular volume 85 [ foz_us] 80-99 Automated erythrocyte mean corpuscular h emoglobin (mass per erythrocyte) 31 pg 25-34 Automated erythrocyte mean corpuscular h emoglobin concentration measurement (mass/volume) 37 g/dL 32-36 Automated erythrocyte distribution width ratio 12. 7 % 10.0- 14.5 Automated blood platelet count (count/volume) 204 10*3/uL 130-400 Automated blood platelet mean volume measurement 9.8 [foz_us] 7.4-10.4 Automated blood neutrophils/100 leukocytes 67 % 42-75 Automated blood lymphocytes/100 leukocytes 22 % 12-44 Blood monocytes/100 leukocytes 9 % 0-12 Automated blood eosinophils/100 leukocytes 2 % 0-10 Automated blood basophils/100 leukocytes 1 % 0-10 Blood neutrophils automated count (number/volume) 5.4 10*3 1.8-7.8 Blood lymphocytes automated count (number/volume) 1.8 10*3 1.0-4.0 Blood monocytes automated count (number/volume) 0. 7 10*3 0.0-1.0 Automated eosinophil count 0.2 10*3/uL 0 .0-0.3 Automated blood basophil count (count/volume) 0.0 10*3/uL 0.0-0.1 Comprehensive metabolic panel - 12/07/18 20:46 Serum or plasma sodium measurement (moles/volume) 140 mmol/L 135-145 Serum or plasma potassium measurement (moles/volume) 3.9 mmol/L 3.6-5.0 Serum or plasma chloride measurement (moles/volume) 105 mmol/L 98-107 Carbon dioxide 24 mmol/L 21-32 Serum or plasma anion gap determination (moles/volume) 11 mmol/L 5-14 Serum or plasma urea nitrogen measurement (mass/volume ) 19 mg/dL 7-18 Serum or plasma creatinine measurement (mass/volume) 1.25 mg/dL 0.60-1.30 Serum or plasma urea nitrogen/creatinine mass ratio 15 NRG Serum or plasma creatinine measurement w ith calculation of estimated glomerular filtration rate > NRG Serum or plasma glucose measurement (mass/volume) 121 mg/dL 70-105 Serum or plasma calcium measurement (mass/volume) 9.3 mg/dL 8.5-10.1 Serum or plasma total bilirubin measurement (mass/volu me) 0.5 mg/dL 0.1-1.0 Serum or plasma alkaline phosphatase dheeraj surement (enzymatic activity/volume) 58 U/L 40-136 Serum or plasma aspartate aminotransfera se measurement (enzymatic activity/volume) 17 U/L 5-34 Serum or plasma alanine aminotransferase measurement (enzymatic activity/volume) 14 U/L 0-55 Serum or plasma protein measurement (mass/volume) 7.4 g/dL 6.4-8.2 Serum or plasma albumin measurement (mass/volume) 4.6 g/dL 3.2-4.5 PT panel in platelet poor plasma by coag ulation assay - 12/07/18 20:46 Prothrombin time (PT) in platelet poor plasma by coagu lation assay 14.2 s 12.2-14.7 INR in platelet poor plasma or blood by coagulation as say 1.1 0.8-1.4 Activated partial thromboplastin time (a PTT) in platelet poor plasma bycoagulation assay - 12/07/18 20:46 Activated partial thromboplastin time (a PTT) in platelet poor plasma bycoagulation assay 32 s 24-35 Fibrin D-dimer FEU measurement in platel et poor plasma (mass/volume) - 12/07/18 20:46 Fibrin D-dimer FEU measurement in platelet poor plasma (mass/volume) 0.27 ug/mL 0.00-0.49 Encounters ACCT No. Visit Date/Time Discharge Status Pt. Type Provider Facility Loc./Unit Complaint [id number] 02/13/2020 16:30:00 02/13/2020 23:59 :00 DIS Outpatient Jimmytanja Tejas [id number] 12/08/2018 13:02:00 Document Registration [id number] 10/09/2019 10:41:00 12:22:00 DIS Emergency FRANCISCO NEWBY APRN [facility] ER LOWER BACK PAIN [id number] 12/07/2018 20:22:00 019 21:57:00 DIS Emergency YA ROY [facility] ER L FOOT SWELLING/PAIN [id number] 08/09/2018 17:10:00 19:29:00 DIS Emergency SOHA BENITO DO a [facility] ER POSS CONCUSSION [id number] 06/12/2017 15:00:00 017 23:59:59 CLS Outpatient ERVIN JANKI LINARES [facility] LAB MONO [id number] 04/15/2017 15:28:00 017 18:34:00 DIS Emergency FRANCISCO NEWBY APRN [facility] ER LIFTING AND HURT BACK [id number] 06/10/2015 21:03:00 015 23:30:00 DIS Emergency FRANCISCO NEWBY APRN [facility] ER [id number] 04/07/2015 19:18:00 015 20:33:00 DIS Emergency FRANCISCO NEWBY APRN [facility] ER HURT ARM WHILE LIFTING WEIGHTS [id number] 03/25/2014 19:44:00 014 21:07:00 DIS Emergency MELODY MENA MD [facility] ER HEAD INJ [id number] 06/26/2013 19:02:00 013 21:04:00 DIS Emergency SOHA BENITO DO a [facility] ER FINGER INJ [id number] 04/07/2015 19:20:00 Document Registration [id number] 08/16/2011 11:14:00 Document Registration [id number] 12/15/2009 22:50:00 Document Registration
[2020-06-08] MEDS ORDERED: KETOROLAC 30 MG/ML VIAL IVP STA (22:37)
[2020-06-08] MEDS ORDERED: FAMOTIDINE 20MG/2ML IV (PEPCID) IV STA (22:37)
[2020-06-08] MEDS ORDERED: LACTATED RINGERS 1,000 ML IV STA (22:37)
[2020-06-08 22:45] LABS: BASOPHILS % (AUTO) 0 % (0-10); EOSINOPHILS % (AUTO) 0 % (0-10); HEMATOCRIT 47 % (40-54); HEMOGLOBIN 17.3 G/DL (13.3-17.7); LYMPHOCYTES # (AUTO) 1.4 X 10^3 (1.0-4.0); LYMPHOCYTES % (AUTO) 7 % (12-44); MEAN CORPUSCULAR HEMOGLOBIN 30 PG (25-34); MEAN CORPUSCULAR HGB CONC 37 G/DL (32-36); MEAN CORPUSCULAR VOLUME 83 FL (80-99); MEAN PLATELET VOLUME 9.7 FL (7.4-10.4); MONOCYTES # (AUTO) 0.6 X 10^3 (0.0-1.0); MONOCYTES % (AUTO) 3 % (0-12); NEUTROPHILS # (AUTO) 17.9 X 10^3 (1.8-7.8); NEUTROPHILS % (AUTO) 90 % (42-75); PLATELET COUNT 246 10^3/uL (130-400)
[2020-06-08] MEDS ORDERED: ONDANSETRON 4 MG/2 ML (SDV) Z0FRAN IVP ONE (22:45)
--- NOTE | 2020-06-08 22:46 | ED General ---
General Chief Complaint: General Problems/Pain Stated Complaint: FEVER,COUGH,VOMITING Nursing Triage Note: GENERALIZED ACHE, AFTER DRINKING "A LOT" OF ETOH LAST NIGHT. Nursing Sepsis Screen: No Definite Risk Source of Information: Patient Exam Limitations: No Limitations History of Present Illness Date Seen by Provider: Jun 08, 2020 Time Seen by Provider: 22:19 Initial Comments Here with report of abdominal pain as well as nausea and vomiting all day after drinking heavily last night. Actually denies fever or cough and states really his only problem is that he has had persistent nausea and vomiting and just feels terrible. States he woke up with a hangover this morning and has suffered through that all day. Admits to smoking a cigarette last night to which did not make him feel better today. Hasn't drank in a few months and never has drink as much as he did last night. He was at home with his friends drinking. Denies contact with anyone with known COVID-19 although did have to travel to [place] on Tuesday for his job. Denies sore throat, runny nose or upper respiratory symptoms. Has not been able to keep water down today but did have some Sprite and little while ago and was able to keep that down. Timing/Duration: 12 Hours Severity: Moderate Associated Systoms: No Chest Pain, No Cough, No Fever/Chills; Nausea/Vomiting; No Shortness of Air; Other (fatigue) Allergies and Home Medications Allergies Coded Allergies: No Known Drug Allergies (Verified , 12/16/09) Home Medications No Active Prescriptions or Reported Meds Patient Home Medication List Home Medication List Reviewed: Yes Review of Systems Review of Systems Constitutional: see HPI; No chills, No fever EENTM: No nose congestion, No throat pain Respiratory: No cough, No short of breath Cardiovascular: No chest pain, No palpitations Gastrointestinal: abdominal pain (epigastric), nausea, vomiting Genitourinary: no symptoms reported Musculoskeletal: no symptoms reported Skin: no symptoms reported Psychiatric/Neurological: See HPI; Denies Headache; Weakness (fatigue) All Other Systems Reviewed Negative Unless Noted: Yes Past Pynkabg-Kkokxl-Iarguj Hx Past Med/Social Hx: Reviewed Nursing Past Med/Soc Hx Patient Social History Alcohol Use: Occasionally Uses Number of Drinks Today: AA Alcohol Beverage of Choice: Beer, Rum, Whiskey, [place], Scotch, Wine, Cheap Liquor, Vodka Recreational Drug Use: No Smoking Status: Never a Smoker 2nd Hand Smoke Exposure: No Recent Foreign Travel: No Contact w/Someone Who Travel: No Recent Infectious Disease Expo: No Recent Hopitalizations: Yes Immunizations Up To Date Tetanus Booster (TDap): Less than 5yrs Seasonal Allergies Seasonal Allergies: No Past Medical History Surgeries: Yes (FOOT; SURGERY ON FACE TO REPAIR DOG BITE) Respiratory: No Cardiac: Yes (PVC'S WHEN HE WAS 6-7 YEARS OLD) Neurological: Yes (CONCUSSION) Concussion Genitourinary: No Gastrointestinal: No Musculoskeletal: No Endocrine: No HEENT: No Cancer: No Psychosocial: No Integumentary: No Blood Disorders: No Family Medical History Reviewed Nursing Family Hx Physical Exam Vital Signs Vital Signs - First Documented 06/08/20 22:25 Temp 36.6 Pulse 88 Resp 18 B/P (MAP) 141/77 (98) Pulse Ox 100 O2 Delivery Room Air Capillary Refill : Less Than 3 Seconds Height, Weight, BMI Height: 6'0" Weight: 195lbs. oz. 88.128879dn; 25.00 BMI Method:Stated General Appearance: No Apparent Distress, WD/WN HEENT: PERRL/EOMI, Pharynx Normal Neck: Non Tender, Supple Respiratory: Lungs Clear, Normal Breath Sounds Cardiovascular: Regular Rate, Rhythm, No Murmur, Other (heart rate increases from 70s to 100 when sitting up) Gastrointestinal: Normal Bowel Sounds, No Organomegaly, No Pulsatile Mass, Non Tender, Soft Back: Normal Inspection, No CVA Tenderness, No Vertebral Tenderness Extremity: Normal Range of Motion, Non Tender Neurologic/Psychiatric: Alert, Oriented x3 Skin: Normal Color, Warm/Dry Progress/Results/Core Measures Suspected Sepsis Recent Fever Within 48 Hours: No Infection Criteria Present: None New/Unexplained Altered Menta: No Sepsis Screen: No Definite Risk SIRS Temperature: Pulse: 88 Respiratory Rate: 18 Laboratory Tests 06/08/20 22:25: White Blood Count 20.0H Blood Pressure 141 /77 Mean: 98 Laboratory Tests 06/08/20 22:25: Creatinine 1.35H, Platelet Count 246, Total Bilirubin 1.5H Results/Orders Lab Results Laboratory Tests Test 06/08/20 22:25 Range/Units White Blood Count 20.0 H 4.3-11.0 10^3/uL Red Blood Count 5.69 4.35-5.85 10^6/uL Hemoglobin 17.3 13.3-17.7 G/DL Hematocrit 47 40-54 % Mean Corpuscular Volume 83 80-99 FL Mean Corpuscular Hemoglobin 30 25-34 PG Mean Corpuscular Hemoglobin Concent 37 H 32-36 G/DL Red Cell Distribution Width 13.0 10.0-14.5 % Platelet Count 246 130-400 10^3/uL Mean Platelet Volume 9.7 7.4-10.4 FL Neutrophils (%) (Auto) 90 H 42-75 % Lymphocytes (%) (Auto) 7 L 12-44 % Monocytes (%) (Auto) 3 0-12 % Eosinophils (%) (Auto) 0 0-10 % Basophils (%) (Auto) 0 0-10 % Neutrophils # (Auto) 17.9 H 1.8-7.8 X 10^3 Lymphocytes # (Auto) 1.4 1.0-4.0 X 10^3 Monocytes # (Auto) 0.6 0.0-1.0 X 10^3 Eosinophils # (Auto) 0.0 0.0-0.3 10^3/uL Basophils # (Auto) 0.0 0.0-0.1 10^3/uL Neutrophils % (Manual) 87 % Lymphocytes % (Manual) 4 % Monocytes % (Manual) 3 % Band Neutrophils 6 % Blood Morphology Comment NORMAL Sodium Level 143 135-145 MMOL/L Potassium Level 4.1 3.6-5.0 MMOL/L Chloride Level 104 98-107 MMOL/L Carbon Dioxide Level 22 21-32 MMOL/L Anion Gap 17 H 5-14 MMOL/L Blood Urea Nitrogen 20 H 7-18 MG/DL Creatinine 1.35 H 0.60-1.30 MG/DL Estimat Glomerular Filtration Rate > 60 BUN/Creatinine Ratio 15 Glucose Level 141 H 70-105 MG/DL Calcium Level 9.5 8.5-10.1 MG/DL Corrected Calcium 9.1 8.5-10.1 MG/DL Total Bilirubin 1.5 H 0.1-1.0 MG/DL Aspartate Amino Transf (AST/SGOT) 42 H 5-34 U/L Alanine Aminotransferase (ALT/SGPT) 91 H 0-55 U/L Alkaline Phosphatase 49 40-136 U/L C-Reactive Protein High Sensitivity 0.02 0.00-0.50 MG/DL Total Protein 6.9 6.4-8.2 GM/DL Albumin 4.5 3.2-4.5 GM/DL My Orders Orders - MELODY MENA MD Cbc With Automated Diff (06/08/20 22:37) Comprehensive Metabolic Panel (06/08/20 22:37) Hs C Reactive Protein (06/08/20 22:37) Ondansetron Injection (Zofran Injectio (06/08/20 22:45) Lactated Ringers (Lr 1000 Ml Iv Solution (06/08/20 22:37) Famotidine Injection (Pepcid Injection) (06/08/20 22:37) Ed Iv/Invasive Line Start (06/08/20 22:37) Ketorolac Injection (Toradol Injection) (06/08/20 22:37) Manual Differential (06/08/20 22:25) Lactated Ringers (Lr 1000 Ml Iv Solution (06/08/20 23:15) Medications Given in ED Current Medications Medications Dose Ordered Sig/Regino Route Start Time Stop Time Status Last Admin Dose Admin Lactated Ringer's 1,000 ml @ 0 mls/hr Q0M ONCE IV 06/08/20 23:15 06/08/20 23:16 DC 06/08/20 23:28 0 MLS/HR Ondansetron HCl 4 mg ONCE ONCE IVP 06/08/20 22:45 06/08/20 22:46 DC 06/08/20 22:44 4 MG Vital Signs/I&O 06/08/20 06/08/20 22:25 22:45 Temp 36.6 36.6 Pulse 88 Resp 18 B/P (MAP) 141/77 (98) Pulse Ox 100 O2 Delivery Room Air 06/09/20 00:00 Intake Total 1000 ml Balance 1000 ml Capillary Refill : Less Than 3 Seconds Blood Pressure Mean: 98 Progress Note : Progress Note Seen and evaluated. IV, labs, LR 1 L bolus, Zofran 4 mg IV, Pepcid 20 mg IV and Toradol 30 mg IV ordered. Monitor patient. Repeat LR 1 L bolus. 0000: Doing better. Labs indicate dehydration vomiting. CRP low. No concerns for infection currently. Given presentation and current course, I think he is safe to discharge home at this point area discharged home with return precautions. Patient verbalize understanding instructions and agreement with plan. Departure Impression Primary Impression: Epigastric abdominal pain Additional Impressions: Nausea and vomiting Qualified Codes: R11.2 - Nausea with vomiting, unspecified Hangover effect Qualified Codes: F10.120 - Alcohol abuse with intoxication, uncomplicated Disposition: 01 HOME, SELF-CARE Condition: Stable Departure-Patient Inst. Decision time for Depature: 00:02 Referrals: JT ODONNELL DO (PCP/Family) Primary Care Physician Patient Instructions: Nausea and Vomiting, Adult, Severe Abdominal Pain, Adult (DC) Add. Discharge Instructions: All discharge instructions reviewed with patient and/or family. Voiced understanding. Clear liquid or light diet for the next 24 hours and then advance as tolerated. You might try a small sips frequently of water down Gatorade, Sprite or adam marizol to keep hydrated. Avoid alcohol. Rest today and return to work tomorrow. Return for worse pain, fever, vomiting, weakness, breathing problems or other concerns as needed. You may take Pepcid or the generic famotidine 20 mg once or twice daily for the next few days and then daily thereafter as needed for stomach upset. Scripts No Active Prescriptions or Reported Meds Work/School Note: Work Release Form Date Seen in the Emergency Department: Jun 08, 2020 Return to Work: Jun 10, 2020 Restrictions: No Restrictions MELODY MENA MD Jun 08, 2020 22:46
[2020-06-08 22:54] LABS: ALBUMIN 4.5 GM/DL (3.2-4.5)
[2020-06-08 22:55] LABS: CHLORIDE 104 MMOL/L (98-107); POTASSIUM 4.1 MMOL/L (3.6-5.0); SODIUM 143 MMOL/L (135-145)
[2020-06-08 22:56] LABS: CALCIUM 9.5 MG/DL (8.5-10.1)
[2020-06-08 22:57] LABS: GLUCOSE 141 MG/DL (70-105); TOTAL PROTEIN 6.9 GM/DL (6.4-8.2)
[2020-06-08 22:58] LABS: CARBON DIOXIDE 22 MMOL/L (21-32)
[2020-06-08 22:59] LABS: BILIRUBIN,TOTAL 1.5 MG/DL (0.1-1.0)
[2020-06-08 23:00] LABS: ALKALINE PHOSPHATASE 49 U/L (40-136)
[2020-06-08 23:01] LABS: CREATININE SERUM 1.35 MG/DL (0.60-1.30); GFR ESTIMATED > 60
[2020-06-08 23:02] LABS: BUN/CREATININE RATIO 15
[2020-06-08 23:03] LABS: ALANINE AMINOTRANSFERASE 91 U/L (0-55)
[2020-06-08 23:06] LABS: BAND NEUTROPHILS 6 %; LYMPHOCYTES % (MANUAL) 4 %; MONOCYTES % (MANUAL) 3 %; NEUTROPHILS % (MANUAL) 87 %; RBC MORPH NORMAL
[2020-06-08] MEDS ORDERED: LACTATED RINGERS 1,000 ML IV ONE (23:15)
[2020-06-09 00:12] VITALS: BP 121/55
== END 2020-06-09 00:13 | disposition home or self-care (01) ==
LOC: EDUNIT# 22:15 → ER 22:17
DX: R10.13 Epigastric pain (principal); F10.129 Alcohol abuse with intoxication, unspecified; F17.210 Nicotine dependence, cigarettes, uncomplicated; Z87.820 Personal history of traumatic brain injury
CPT/HCPCS: 36415; 80053; 85007; 85027; 86141